=== PATIENT | male | born 1970 | race Asian ===

== ENCOUNTER 2022-06-10 16:46 | Emergency (ER) | payer OTHER ==
[~2022-06-10] VITALS: Ht 175.3 cm; Wt 100.7 kg
[2022-06-10 17:00] VITALS: TEMP 97.8
[2022-06-10 18:00] VITALS: BP 161/104
== END 2022-06-10 18:00 | disposition home or self-care (01) ==
LOC: ED 16:46
PROC: 2W3DX1Z Immobilization of Left Lower Arm using Splint (ICD-10-PCS; principal; 2022-06-10)
DX: S52.592A Other fractures of lower end of left radius, initial encounter for closed fracture (principal); I10 Essential (primary) hypertension; V00.848A Other accident with standing micro-mobility pedestrian conveyance, initial encounter; Y92.89 Other specified places as the place of occurrence of the external cause
CPT/HCPCS: 99282

== ENCOUNTER 2022-06-22 10:40 | Emergency (ER) | payer OTHER ==
[~2022-06-22] VITALS: Ht 175.3 cm; Wt 100.7 kg
[2022-06-22 10:40] VITALS: TEMP 98.9
[2022-06-22 11:15] VITALS: BP 139/93
== END 2022-06-22 11:22 | disposition home or self-care (01) ==
LOC: ED 10:40
DX: S52.592D Other fractures of lower end of left radius, subsequent encounter for closed fracture with routine healing (principal); V00.848D Other accident with standing micro-mobility pedestrian conveyance, subsequent encounter; Y92.89 Other specified places as the place of occurrence of the external cause
CPT/HCPCS: 99282

== ENCOUNTER 2022-07-06 14:32 | Outpatient (CLI) | payer OTHER | END 2022-07-06 19:20 | disposition home or self-care (01) | LOC: RAD 14:32 | PROVIDERS: ATTEND Physician Assistant | DX: M25.532 Pain in left wrist (principal) ==